=== PATIENT | female | born 1945 | race American Indian/Alaskan Native ===

== ENCOUNTER 2022-07-10 08:14 | Day surgery (SDC) | payer MEDICARE, BC, OTHER ==
[2022-07-04 15:18] LABS: BASOPHILS % (AUTO) 0.8 % (0-1); EOSINOPHILS # (AUTO) 0.3 X10'3 (0-0.9); EOSINOPHILS % (AUTO) 5.3 % (0-6); HEMOGLOBIN 11.5 g/dl (12.0-16.0); LYMPHOCYTES # (AUTO) 1.3 X10'3 (1.1-4.8); LYMPHOCYTES % (AUTO) 23.7 % (21-51); MEAN CORPUSCULAR HEMOGLOBIN 26.7 PG (27.0-31.0); MEAN CORPUSCULAR HGB CONC 32.9 g/dL (33.0-36.5); MEAN CORPUSCULAR VOLUME 81.2 FL (78-98); MEAN PLATELET VOLUME 9.5 FL (7.4-10.4); MONOCYTES # (AUTO) 0.5 X10'3 (0-0.9); MONOCYTES % (AUTO) 8.8 % (2-12); NEUTROPHILS # (AUTO) 3.4 X10'3 (1.8-7.7); NEUTROPHILS % (AUTO) 61.4 % (42-75); PLATELET COUNT 252 X10'3 (140-440); RED BLOOD COUNT 4.31 X10'6 (4.20-5.60); RED CELL DISTRIBUTION WIDTH 16.1 % (11.5-14.5); WHITE BLOOD COUNT 5.5 X10'3 (4.5-11.0)
[2022-07-04 15:25] LABS: APTT 22 SECONDS (22-32)
[2022-07-04 15:27] LABS: ALANINE AMINOTRANSFERASE 24 U/L (12-78); ALBUMIN 4.4 G/DL (3.4-5.0); ALBUMIN/GLOBULIN RATIO 1.3 (1.1-1.5); ALKALINE PHOSPHATASE 101 IU/L (46-116); ANION GAP 6 (8-16); ASPARTATE AMINO TRANSFERASE 23 U/L (10-37); BILIRUBIN,TOTAL 0.5 MG/DL (0.1-1.0); BLOOD UREA NITROGEN 22 MG/DL (7-18); BUN/CREATININE RATIO 25.3 (6.6-38.0); CALCIUM 9.5 MG/DL (8.5-10.1); CHLORIDE 106 MMOL/L (99-107); CREATININE 0.87 MG/DL (0.40-0.90); GLUCOSE 185 MG/DL (70-104); POTASSIUM 4.8 MMOL/L (3.5-5.1); SODIUM 138 MMOL/L (135-145); TOTAL PROTEIN 7.8 G/DL (6.4-8.2); eGFR 63 ML/MIN
[2022-07-10] VITALS (12 sets, daily range): BP systolic 154–183; BP diastolic 51–114
[~2022-07-10] VITALS: Ht 157.5 cm; Wt 87.8 kg
[2022-07-10] MEDS ORDERED: normal saline 1,000 ML IV SCH (08:40)
[2022-07-10] MEDS ORDERED: LORazepam 0.5 MG tablet PO PRN (08:40)
[2022-07-10] MEDS ORDERED: diphenhydrAMINE 25mg capsule PO PRN (08:40)
[2022-07-10] MEDS ORDERED: methylPREDNISolone sod succ 125mg/2ml vial IV ONE (08:40)
[2022-07-10] MEDS ORDERED: ROSU5TAB12 (08:58)
[2022-07-10] MEDS ORDERED: FENO145T25 PO (08:58)
[2022-07-10] MEDS ORDERED: METF-438 PO (08:58)
[2022-07-10] MEDS ORDERED: INSU100I8 SQ (08:58)
[2022-07-10] MEDS ORDERED: PIOG30TA71 PO (08:58)
[2022-07-10] MEDS ORDERED: PRED20TA PO (08:58)
[2022-07-10] MEDS ORDERED: METO-384 (08:58)
[2022-07-10] MEDS ORDERED: LANTUS SQ (09:00)
[2022-07-10] MEDS ORDERED: CHOL500050 PO (09:06)
[2022-07-10] MEDS ORDERED: ASPI-1071 PO (09:06)
[2022-07-10] MEDS ORDERED: midazolam 1 mg/ML 2ml injection ONE ×2 (10:23→11:18)
[2022-07-10] MEDS ORDERED: iohexol 350MG/ML 100ml bottle IV ONE ×3 (10:24→11:30)
[2022-07-10] MEDS ORDERED: heparin 1,000unit/ml 10ml vial 0 ML ONE (10:24)
[2022-07-10] MEDS ORDERED: fentaNYL/PF 50MCG/1 ML 2ML syringe ONE ×2 (10:24→11:18)
[2022-07-10] MEDS ORDERED: LIDOcaine 1%/PF 5ML 10 MG/ML VIAL ONE (10:24)
[2022-07-10] MEDS ORDERED: proCHLORperazine 10 MG/2 ml inj ONE (10:50)
[2022-07-10] MEDS ORDERED: nitroGLYCERIN-Tridil 50MG/D5W 250 ML IV ONE (11:41)
[2022-07-10] MEDS ORDERED: proCHLORperazine 10 MG/2 ml inj IV PRN (12:35)
[2022-07-10] MEDS ORDERED: HYDROcodone/acetaminophen 10/325mg tab PO PRN (12:35)
[2022-07-10] MEDS ORDERED: HYDROcodone/acetaminophen 5mg/325mg tablet PO PRN (12:35)
[2022-07-10] MEDS ORDERED: ondansetron/PF 4mg/2ml inj IV PRN (12:35)
[2022-07-10] MEDS ORDERED: OXAZEpam 15mg capsule PO PRN (12:35)
[2022-07-10] MEDS ORDERED: normal saline 1000ml 1,000 ML IV SCH (12:35)
[2022-07-10] MEDS ORDERED: nitroGLYCERIN 0.4mg SUBLingual tab SL PRN ×2 (12:35→13:10)
--- NOTE | 2022-07-10 13:00 | NUR ---
Zhu catheter 16f placed. Clear yellow urine draining.
--- NOTE | 2022-07-10 13:07 | NUR ---
Notified Dr. Boykin patient's SBP trending 170's. New order for 0.4 mg SL nitroglycerin x 1. Addendum: 07/10/22 at 1325 by Kathi Upton RN Per Dr. Boykin, give patient's home dosage of metoprolol 50 mg PO.
[2022-07-10] MEDS ORDERED: metoprolol succinate 25mg (24-HOUR) SR. Tablet PO SCH (13:15)
--- NOTE | 2022-07-10 16:07 | NUR ---
Notified Dr. Boykin of patient's increased SBP trending in 180's. No new orders at this time. Addendum: 07/10/22 at 1614 by Kathi Upton RN BP 188/74
== END 2022-07-10 18:00 | disposition home or self-care (01) ==
LOC: SSTAY O 08:14
PROVIDERS: ATTEND Internal Medicine Cardiovascular Disease
DX: R94.39 Abnormal result of other cardiovascular function study (principal); I25.10 Atherosclerotic heart disease of native coronary artery without angina pectoris; I25.82 Chronic total occlusion of coronary artery; Z79.899 Other long term (current) drug therapy; Z98.890 Other specified postprocedural states; Z79.01 Long term (current) use of anticoagulants; I10 Essential (primary) hypertension; E78.5 Hyperlipidemia, unspecified; I73.9 Peripheral vascular disease, unspecified; Z95.1 Presence of aortocoronary bypass graft
CPT/HCPCS: 36415; 71046; 80053; 82948; 85025; 85610; 85730; 93005; 93459; 99152; 99153; C1760; C1769; J0780; J1644; J2250; J2930; J3010; J3490; J7030; Q0163; Q9967; A4314; A4620; A6258